=== PATIENT | female | born 1955 | race Caucasian/White ===

== ENCOUNTER 2019-06-14 12:20 | Observation (INO) ==
[2019-06-14] MEDS ORDERED: IMODIUM PO PRN (13:11)
[2019-06-14] MEDS ORDERED: DESYREL PO PRN (13:11)
[2019-06-14] MEDS ORDERED: SENOKOT PO PRN (13:11)
[2019-06-14] MEDS ORDERED: MOTRIN PO PRN (13:11)
[2019-06-14] MEDS ORDERED: PHENOBARBITAL IV PRN (13:11)
[2019-06-14] MEDS ORDERED: BENTYL PO PRN (13:11)
[2019-06-14] MEDS ORDERED: TUBERSOL ID ONE (13:11)
[2019-06-14] MEDS ORDERED: ZOFRAN IV PRN (13:11)
[2019-06-14] MEDS ORDERED: DULCOLAX PR PRN (13:11)
[2019-06-14] MEDS ORDERED: ZOFRAN ODT PO PRN (13:11)
[2019-06-14] MEDS ORDERED: D5W 1,000 ML IV PRN (13:11)
[2019-06-14] MEDS ORDERED: MAALOX PLUS LIQUID PO PRN (13:11)
[2019-06-14] MEDS ORDERED: SUBOXONE 2 MG/0.5 MG FILM SL SCH (13:15)
[2019-06-14 14:38] LABS: HEMATOCRIT 41.7 % (37.0-47.0); HEMOGLOBIN 13.5 g/dL (12.0-16.0); MCH 29.1 PG (27-31); MCHC 32.4 g/dL (33-37); MCV 89.9 FL (81-99); MPV 9.8 FL (7.4-10.4); RBC 4.64 XMIL (4.2-5.4); RDW 14.1 % (11.5-14.5); WBC 8.29 X1000 (4.8-10.8)
[2019-06-14 14:47] LABS: AMYLASE 115 U/L (20-200); LIPASE 35 U/L (13-60)
[2019-06-14 14:49] LABS: INR 0.85
[2019-06-14 14:50] LABS: AGAP 11; ALBUMIN 4.5 g/dL (3.5-5.0); ALKALINE PHOSPHATASE 84 U/L (32-104); BUN 11 mg/dL (8-22); CALCIUM 9.6 mg/dL (8.8-10.2); CHLORIDE 99 mmol/L (98-107); COSMO 279; CREATININE 0.8 mg/dL (0.5-0.9); ESTIMATED GFR > 60; GLUCOSE 138 mg/dL (70-104); GOT 16 U/L (10-30); GPT 11 U/L (10-36); SODIUM 139 mmol/L (136-145); TCO2 30 mmol/L (25-35); TOTAL PROTEIN 7.4 g/dL (6.3-8.3)
[2019-06-14] MEDS ORDERED: FLU VACCINE IM ONE (15:21)
[2019-06-14] MEDS ORDERED: PNEUMOVAX 23 IM ONE (15:30)
[2019-06-14 15:37] LABS: URINE SOURCE CLEAN CATCH
[2019-06-14] MEDS: ROBAXIN PO PRN ×2 (15:38→23:52)
[2019-06-14] MEDS: TYLENOL PO PRN (15:38)
[2019-06-14] MEDS: NICODERM PATCH TD PRN (15:38)
[2019-06-14] MEDS: SINEMET 25/100 PO PRN (15:38)
[2019-06-14 15:47] LABS: BILIRUBIN URINE NEGATIVE (NEGATIVE); BLOOD URINE NEGATIVE (NEGATIVE); COLOR STRAW; GLUCOSE URINE NEGATIVE (NEGATIVE); KETONE URINE NEGATIVE (NEGATIVE); LEUKOCYTES URINE NEGATIVE (NEGATIVE); NITRITE URINE NEGATIVE (NEGATIVE); PROTEIN URINE NEGATIVE (NEGATIVE); SP GRAVITY URINE 1.009; TURBIDITY URINE CLEAR (CLEAR); UROBILINOGEN URINE NORMAL (NORMAL)
[2019-06-14 15:49] LABS: UR EPITHELIAL CELLS <10 /HPF (<10); URINE BACTERIA NEGATIVE /HPF; URINE RBC <10 /HPF (<10); URINE WBC <10 /HPF (<10)
[2019-06-14 16:00] LABS: UR AMPHETAMINES QUAL NONE DETECTED (NONE DETECT); UR BARBITUATES QUAL NONE DETECTED (NONE DETECT); UR BENZODIAZEPIN QUAL NONE DETECTED (NONE DETECT); UR CANNABINOIDS QUAL NONE DETECTED (NONE DETECT); UR COCAINE QUAL NONE DETECTED (NONE DETECT); UR METHADONE QUAL NONE DETECTED (NONE DETECT); UR METHAMPHETAMINE QUAL NONE DETECTED (NONE DETECT); UR OPIATES QUAL NONE DETECTED (NONE DETECT); UR OXYCODONE QUAL PRESUMPTIVE POSITIVE (NONE DETECT); UR PCP QUAL NONE DETECTED (NONE DETECT); UR PROPOXYPHENE QUAL NONE DETECTED (NONE DETECT); UR TCA QUAL NONE DETECTED (NONE DETECT)
[2019-06-14] MEDS ORDERED: BLISTEX MEDICATED BERRY LIP BALM TOP PRN (17:20)
[2019-06-14] MEDS: ATARAX PO PRN (17:27)
[2019-06-14] MEDS: SEROQUEL PO PRN (22:45)
[2019-06-14] MEDS: LIBRIUM PO PRN (22:45)
--- NOTE | 2019-06-15 00:19 | HISTORY AND PHYSICAL ---
CHIEF COMPLAINT: Nausea, vomiting. HISTORY OF PRESENT ILLNESS: The patient is a 64-year-old female who presented to [facility] secondary to nausea, vomiting, abdominal pain, myalgias, tremors. Notes that she has been having hot and cold sweats. She has been nauseated, having difficulty keeping things down. She has been fidgety and anxious. States she has been taking high-dose opiates for quite some time. Her pain clinic rapidly decreased her doses and she has been having to get medicines off the street. SOCIAL HISTORY: She is a , retired. Lives at home in [place]. She is taking care of her 2 grandchildren under the age of 10. PAST MEDICAL HISTORY: Bulging disk, chronic pain, depression, anxiety, hypertension, recurrent pneumonia, diabetes. MEDICATIONS: Metformin, quinapril, gabapentin 800, hydrochlorothiazide, omeprazole, oxycodone 15 t.i.d., although notes that she takes significantly more than this. ALLERGIES: Sulfa, Levaquin and morphine. REVIEW OF SYSTEMS: CINA score is 12 secondary to the above-named symptoms. Denies any chest pain, palpitations. Denies fevers, chills. Denies dysuria, frequency, urgency, hesitancy, polyuria, polydipsia, skin rashes, weight loss or weight gain. SUBSTANCE ABUSE HISTORY: The patient has not been in treatment facility in the past, although she has been in Pain Clinic 3 different times. Notes that twice her pain clinic has been shut down and the 3rd time, and most recently, her pain clinic has rapidly weaned her. The patient notes she started opiates in her early 40s. She has gradually increased the dose. At 1 point, was taking methadone 40 mg daily and OxyContin 15 mg 4 times daily. Started smoking at 16, currently smokes 1 to 1-1/2 packs a day. FAMILY HISTORY: Noncontributory. PHYSICAL EXAMINATION: VITAL SIGNS: Reviewed and stable. GENERAL: Patient is awake, alert. She is currently in no respiratory distress. HEENT: Normocephalic. NECK: Supple. CARDIOVASCULAR: Regular rate. CHEST: Clear. ABDOMEN: Soft. EXTREMITIES: Moves all extremities. NEUROLOGIC: No focal changes. ASSESSMENT: 1. Nausea and vomiting. 2. Abdominal pain. 3. Myalgias. 4. Paresthesias. 5. Paroxysmal sweating. 6. Opiate abuse withdrawal and stabilization. 7. Chronic tobacco abuse. 8. Hypertension. 9. Diabetes. PLAN: We are going to admit the patient to the hospital, begin counseling. Discussed with patient transitioning to Suboxone for medication-assisted therapy. We will check her labs. Adjust her medicines as needed. Discussed with patient that unfortunately she is highly invested in taking pain medication, but as she has noticed over the years, pain medication has never actually fixed nor stopped nor prevented futuristic pain. cc: Cm Gamino MD
[2019-06-15] MEDS: ROBAXIN PO PRN ×3 (06:58→23:15)
[2019-06-15] MEDS ORDERED: PROTONIX PO SCH (07:00)
[2019-06-15] MEDS: VITAMIN B-1 PO SCH (08:00)
[2019-06-15] MEDS: TYLENOL PO PRN ×2 (08:00→13:32)
[2019-06-15] MEDS: SUBOXONE 2 MG/0.5 MG FILM SL SCH ×2 (08:00→20:33)
[2019-06-15] MEDS: SINEMET 25/100 PO PRN ×2 (08:01→15:39)
[2019-06-15] MEDS: FOLIC ACID PO SCH (08:01)
[2019-06-15] MEDS: THERA M PLUS PO SCH (08:01)
[2019-06-15] MEDS ORDERED: NEURONTIN PO PRN (09:57)
[2019-06-15] MEDS: LIBRIUM PO PRN (10:01)
[2019-06-15] MEDS: ACCUPRIL PO SCH (10:22)
[2019-06-15] MEDS: PRILOSEC PO SCH (10:22)
[2019-06-15] MEDS: GLUCOPHAGE PO SCH ×2 (10:22→20:33)
[2019-06-15] MEDS: HYDROCHLOROTHIAZIDE PO SCH (10:23)
[2019-06-15] MEDS: DIFLUCAN PO SCH (10:24)
[2019-06-15] MEDS: NICODERM PATCH TD PRN (15:39)
[2019-06-15] MEDS: ATARAX PO PRN (15:39)
--- NOTE | 2019-06-15 19:14 | PROGRESS NOTE ---
DATE: 06/15/2019 SUBJECTIVE: The patient has no new complaints, although she is still highly invested in pain and pain control. Notes that she hurts all the time and does not want to hurt. States that she has leg pain all the time and does not want to feel her legs hurting. States her legs wake her up frequently at night. OBJECTIVE: Vital signs reviewed. Temperature 98 degrees, pulse 105, respiratory 18, BP 130/82.General: The patient is awake, alert. She is in no respiratory distress. HEENT: Normocephalic. Neck supple. Cardiovascular: Regular rate. No murmurs. Chest clear, nonlabored. Abdomen soft, nondistended. Extremities: Moves all extremities. Neurologic: No focal changes. ASSESSMENT: 1. Nausea and vomiting. 2. Abdominal pain. 3. Myalgias. 4. Paresthesias. 5. Paroxysmal sweating. 6. Restless legs syndrome. 7. Opiate abuse, withdrawal and stabilization. PLAN: We are going to continue the patient in the hospital. She just started her Suboxone this morning. I am certainly concerned that Suboxone may not be sufficient for Ms. King. She is quite invested in pain and pain control. She said on multiple occasions that despite how much pain medication she took, she tolerated it well and that no one could tell how much she had taken, that she never really had side effects from it, and that she would actually just like to go back to taking that amount. We continued counseling, continued to attempt to discuss with the patient that she was on enough pain medication that the flu, pneumonia could have caused respiratory failure and . We will continue counseling. Continue Suboxone and we will follow. cc: Cm Gamino MD
[2019-06-15] MEDS: SEROQUEL PO PRN (23:15)
[2019-06-16] MEDS: PRILOSEC PO SCH (06:36)
[2019-06-16 08:24] VITALS: BP 138/73
[2019-06-16] MEDS: THERA M PLUS PO SCH (08:25)
[2019-06-16] MEDS: ACCUPRIL PO SCH (08:25)
[2019-06-16] MEDS: DIFLUCAN PO SCH (08:26)
[2019-06-16] MEDS: SINEMET 25/100 PO PRN (08:26)
[2019-06-16] MEDS: HYDROCHLOROTHIAZIDE PO SCH (08:27)
[2019-06-16] MEDS: VITAMIN B-1 PO SCH (08:27)
[2019-06-16] MEDS: FOLIC ACID PO SCH (08:27)
[2019-06-16] MEDS: GLUCOPHAGE PO SCH (08:27)
[2019-06-16] MEDS: TYLENOL PO PRN (08:27)
[2019-06-16] MEDS ORDERED: SUBOXONE 8 MG/2 MG FILM SL SCH (09:00)
--- NOTE | 2019-06-16 15:24 | DISCHARGE SUMMARY ---
ADMISSION DATE: 06/14/2019 DISCHARGE DATE: 06/16/2019 DISCHARGE DIAGNOSES: 1. Nausea, vomiting. 2. Abdominal pain. 3. Myalgias. 4. Paresthesias. 5. Paroxysmal sweating. 6. Restless legs syndrome. 7. Chronic back pain. 8. Opiate abuse, withdrawal, and stabilization. 9. Chronic anxiety, depression. CONSULTATIONS: None. PROCEDURES: None. BRIEF HOSPITAL COURSE: The patient is a 64-year-old female who presented to [facility] secondary to nausea, vomiting, abdominal pain, myalgias, paresthesias. The first 2 days, she noted that she felt absolutely terrible and wanted to go back to using opiates. However, today she feels tremendously better as expected. She has less muscle aches, less myalgias. She notes that she feels better than she has in quite some time. Thankfully she otherwise had an uneventful hospital course. She was started on Suboxone. Counseling was performed each day. DISPOSITION: Patient is to continue Suboxone. We did increase to 8. Discussed with her that she needs to follow up outpatient with treatment facility of choice. She will continue Suboxone. We will continue gabapentin for now but did discuss with her that she needs to wean in the future. No other changes made on her chronic diet or activity. cc: Cm Gamino MD [id number]
== END 2019-06-16 10:11 | disposition home or self-care (01) ==
LOC: INTOOBSV 13:37 → P.MEDSURG 13:37
PROVIDERS: ADMIT Family Medicine; ATTEND Family Medicine